=== PATIENT | female | born 1960 | race Caucasian/White ===

== ENCOUNTER → 2025-05-08 | Outpatient (CLI) | payer BC ==
[~2025-05-08] MED LIST: METO100T14 PO
--- NOTE | 2025-05-13 05:37 | HMCIMG ---
EXAMINATION: SOFT TISSUE ULTRASOUND OF THE NECK. CLINICAL HISTORY: Palpable swellings. COMPARISON: None provided. TECHNIQUE: Transverse and longitudinal images were obtained. In addition, color Doppler is medically necessary to assess vascularity and blood flow. FINDINGS: Both the submandibular glands are normal in caliber with homogenous echotexture measures 3.9 x 1.2 x 3.9 cm on the right and 3.4 x 1.4 x 4.2 cm on the left. There are enlarged lymph nodes that measure 1.5 x 0.8 cm, 0.8 x 0.5 cm on the right, 1.1 x 0.7 cm, 0.7 x 0.4 cm, and 0.6 x 0.3 cm in the left neck.. Maintained hilar echoes. No increased vascularity. IMPRESSION: Bilateral cervical lymphadenopathy. Recommend contrast enhanced CT neck. /New
== END | disposition home or self-care (01) ==
LOC: RAH 14:30
PROVIDERS: ATTEND Internal Medicine
DX: R22.1 Localized swelling, mass and lump, neck (principal)
CPT/HCPCS: 76536

== ENCOUNTER → 2025-05-29 | Outpatient (CLI) | payer BC ==
[~2025-05-29] MED LIST changes: +IOHEXOL 350 MG/ML 100ML INFUS..BTL IV ONE
--- NOTE | 2025-05-29 10:12 | HMCIMG ---
CLINICAL INDICATION: Enlarged lymph nodes COMPARISON: Prior ultrasound from 05/08/2025 is available for comparison TECHNIQUE: Multiple contiguous axial images were obtained though the neck without and with IV contrast, images were reconstructed in the sagittal and coronal planes. Dose optimization technique was used including automated exposure control and adjustment of mA and/or kV based on patient's size. FINDINGS: NASOPHARYNX: The pharynx reveals normal contour with normal appearance of the fossa of Rosenmuller and parapharyngeal fat. ORAL CAVITY: The tongue, tongue base, glossotonsillar and glossopharyngeal sulci are normal. OROPHARYNX: The tonsillar pillars are normal in appearance. The preglottic fat is preserved. The vallecula is patent. SUPRAGLOTTIC: The supraglottic structures are normal. LARYNX: The vocal cords are normal in appearance. The paraglottic fat is preserved. SUBGLOTTIS: The subglottic structures are normal. The left lower lobe has a nodule seen. There are small occasional nonspecific lymph nodes seen in the neck. No abnormal enlarged lymph node identified. 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 IMPRESSION: 1. Nonspecific small occasional lymph node seen in both neck region 2. left thyroid lobe has a nodule recommend a thyroid sonogram
--- NOTE | 2025-05-29 10:15 | HMCIMG ---
CT CHEST W/WO CONTRAST REASON: Localized enlarged lymph nodes COMPARISON: None. TECHNIQUE: Multiple sequential axial images of the chest were obtained from the thoracic inlet through the upper pole of the kidneys without intravenous contrast administration. FINDINGS: Heart size is within upper limits of normal. There is coronary calcification suggesting of coronary artery disease. No mediastinal or axillary lymphadenopathy identified. There is no pleural or pericardial effusion. Lungs are clear. There is no consolidation or pneumothorax. Trachea and main bronchi are unremarkable. Atherosclerotic changes with calcified plaque of the thoracic aorta. No chest wall abnormality identified. The visualized portion of upper abdomen demonstrate no abnormality. There is gastric surgery with surgical aster seen. There is no mass or lymphadenopathy seen in the mediastinum or hilar region. IMPRESSION: No acute process seen in CT of the chest with the without contrast. Coronary calcification suggesting of coronary artery disease. CT was performed with one or more following dose reduction techniques: automated exposure control, adjustment of the mA and kv according to patient's size, or use of a iterative reconstruction technique.
== END | disposition home or self-care (01) ==
LOC: RAH 07:36
PROVIDERS: ATTEND Internal Medicine
DX: E04.1 Nontoxic single thyroid nodule (principal); I70.0 Atherosclerosis of aorta; M47.814 Spondylosis without myelopathy or radiculopathy, thoracic region; R59.0 Localized enlarged lymph nodes; Z98.84 Bariatric surgery status
CPT/HCPCS: 71270; 70492; Q9967